=== PATIENT | male | born 1940 | race Two or more races ===

== ENCOUNTER 2021-04-18 13:10 | Emergency (ER) | payer OTHER ==
[2021-04-18 13:22] VITALS: BP 179/75; PULSE 59; TEMP 98.2; BMI 29.9
== END 2021-04-18 17:49 | disposition home or self-care (01) ==
LOC: JERFT 13:10
DX: M26.609 Unspecified temporomandibular joint disorder, unspecified side (principal)
CPT/HCPCS: 70450-TC; 99284-25

== ENCOUNTER 2024-07-30 14:34 | Observation (INO) | payer OTHER ==
[2024-07-30 14:40] VITALS: BMI 26.3
[2024-07-30 15:50] LABS: BASO % 0.4 % (0-2.0); EOS % 1.1 % (0-4.5); HEMATOCRIT 35.1 % (35.4-49); LYMPH % 22.7 % (8-40); MCH 23.9 pg (25.7-33.7); MCHC 31.3 g/dl (32.0-35.9); MEAN CELL VOLUME 76.4 fl (80-96); MONO % 6.3 % (3.8-10.2); NEUT % 69.5 % (42.8-82.8); PLATELET COUNT 246 10^3/uL (134-434); RDW 19.7 % (11.9-15.9); WHITE BLOOD COUNT 7.9 K/mm3 (4.0-10.0)
[2024-07-30 15:54] LABS: INR 1.15 (0.83-1.09); PROTHROMBIN TIME (PATIENT) 13.2 SEC (9.7-13.0)
[2024-07-30 15:57] LABS: ACTIVATED PTT 29.6 SECONDS (25.2-36.5)
[2024-07-30 16:11] LABS: POTASSIUM 5.6 mmol/L (3.5-5.1)
[2024-07-30 16:14] LABS: ALBUMIN 4.1 g/dl (3.4-5.0); CALCIUM 9.7 mg/dL (8.5-10.1)
[2024-07-30 16:15] LABS: BLOOD UREA NITROGEN 16.3 mg/dL (7-18); MAGNESIUM 2.5 mg/dL (1.8-2.4)
[2024-07-30 16:18] LABS: CREATININE 1.1 mg/dL (0.55-1.3)
[2024-07-30 16:19] LABS: BILIRUBIN,TOTAL 0.9 mg/dL (0.2-1); TOT PROT 7.3 g/dl (6.4-8.2)
[2024-07-30 17:18] LABS: HIV INTERPRETATION NEGATIVE (NEGATIVE)
[2024-07-30] MEDS ORDERED: CALCIUM GLUCONATE 10% - 1,000 MG/10 ML VIAL ONE (18:30)
[2024-07-30] MEDS: DEXTROSE 50%-WATER - 25 GM/50 ML VIAL IVPUSH ONE (18:30)
[2024-07-30] MEDS ORDERED: DEXTROSE 50%-WATER 25 GM/50 ML DISP.SYRIN ONE (18:30)
[2024-07-30] MEDS ORDERED: INSULIN REGULAR HUMAN 100 UNITS/ML *VIAL ONE (18:31)
[2024-07-30] MEDS: INSULIN REGULAR HUMAN 100 UNITS/ML *VIAL IVPUSH ONE (19:08)
[2024-07-30] MEDS: CALCIUM GLUCONATE 10% - 1,000 MG/10 ML VIAL IVPB ONE (19:08)
[2024-07-30] MEDS: LACTATED RINGERS SOLUTION 1000 ML INFUS.BAG IV ONE (19:08)
[2024-07-30] MEDS ORDERED: SODIUM ZIRCONIUM CYCLOSILICATE (LOKELMA) 10 GM PACKET ONE (19:15)
[2024-07-30] MEDS: APIXABAN 5 MG TABLET PO SCH (23:36)
[2024-07-30] MEDS: SACUBITRIL/VALSARTAN 24 MG-26 MG TABLET PO SCH (23:37)
[2024-07-31 08:21] LABS: CALCIUM 9.2 mg/dL (8.5-10.1)
[2024-07-31 08:22] LABS: BLOOD UREA NITROGEN 16.9 mg/dL (7-18)
[2024-07-31 08:25] LABS: CREATININE 1.1 mg/dL (0.55-1.3)
[2024-07-31] MEDS: TAMSULOSIN HCL 0.4 MG CAP PO SCH (09:20)
[2024-07-31] MEDS: TOPIRAMATE 100 MG TABLET PO SCH (09:45)
[2024-07-31] MEDS: ASCORBIC ACID 500 MG TABLET (FP) PO SCH (09:46)
[2024-07-31] MEDS: SPIRONOLACTONE 25 MG TABLET PO SCH (09:46)
[2024-07-31] MEDS: FINASTERIDE 5 MG TABLET (FP) PO SCH (09:46)
[2024-07-31] MEDS: SODIUM ZIRCONIUM CYCLOSILICATE (LOKELMA) 5 GM PACKET PO ONE (16:14)
[2024-07-31] MEDS: metoPROLOL SUCCINATE 25 MG TAB.SR.24H (FP) PO SCH (22:25)
[2024-08-01 08:08] LABS: HEMOGLOBIN 10.6 GM/dL (11.7-16.9); MCH 23.7 pg (25.7-33.7); MCHC 31.2 g/dl (32.0-35.9); MEAN PLT VOLUME 9.1 fl (7.5-11.1); PLATELET COUNT 213 10^3/uL (134-434); RBC 4.47 M/mm3 (4.00-5.60); RDW 19.7 % (11.9-15.9); WHITE BLOOD COUNT 7.3 K/mm3 (4.0-10.0)
[2024-08-01 08:36] LABS: ALBUMIN 3.5 g/dl (3.4-5.0); BLOOD UREA NITROGEN 19.5 mg/dL (7-18); MAGNESIUM 2.2 mg/dL (1.8-2.4)
[2024-08-01 08:39] LABS: CREATININE 1.1 mg/dL (0.55-1.3); PHOSPHOROUS 3.2 mg/dL (2.5-4.9)
[2024-08-01 08:40] LABS: BILIRUBIN,TOTAL 0.6 mg/dL (0.2-1)
[2024-08-01 08:41] LABS: TOT PROT 6.3 g/dl (6.4-8.2)
[2024-08-01 14:37] VITALS: RESP 18
[2024-08-01] MEDS: IRON SUCROSE INJECTION 200 MG in SODIUM CHLORIDE 100 ML IVPB ONE (17:05)
[2024-08-01 18:38] VITALS: BP 98/66; PULSE 76; TEMP 97.7
== END 2024-08-01 19:00 | disposition home or self-care (01) ==
LOC: JER 14:34 → JERBED 17:06 → J4S 20:14
PROVIDERS: ADMIT Internal Medicine; ATTEND Internal Medicine
PROC: 3E033VG Introduction of Insulin into Peripheral Vein, Percutaneous Approach (ICD-10-PCS; principal; 2024-07-30)
DX: I48.91 Unspecified atrial fibrillation (principal); I11.0 Hypertensive heart disease with heart failure; I50.20 Unspecified systolic (congestive) heart failure; I07.1 Rheumatic tricuspid insufficiency; K57.90 Diverticulosis of intestine, part unspecified, without perforation or abscess without bleeding; D64.9 Anemia, unspecified; N40.0 Benign prostatic hyperplasia without lower urinary tract symptoms; E78.5 Hyperlipidemia, unspecified; Z86.19 Personal history of other infectious and parasitic diseases; Z79.01 Long term (current) use of anticoagulants
CPT/HCPCS: 36415; 70450-TC; 71045-TC-FY; 80048; 80053; 82728; 83540; 83550; 83735; 84100; 84484; 85025; 85027; 85610; 85730; 86803; 86850; 86900; 86901; 87389; 87522; 93005; 93010; 93306-TC; 93880-TC; 96365; 96374; 96375; 97116-GP; 97161-GP; 99285-25; G0378; J1756